=== PATIENT | male | born 1960 | race Caucasian/White ===

== ENCOUNTER → 2017-06-20 | Outpatient (CLI) | payer OTHER ==
[2017-06-20 12:52] LABS: BLOOD UREA NITROGEN 23 mg/dl (7-18); CALCIUM 8.9 mg/dl (8.5-10.1); CARBON DIOXIDE 26 mmol/L (21-32); CHLORIDE 104 mmol/L (98-107); CREATININE 0.98 mg/dl (0.60-1.40); GLUCOSE 101 mg/dl (70-99); POTASSIUM 3.7 mmol/L (3.5-5.1); SODIUM 136 mmol/L (136-145)
[2017-06-20 12:55] LABS: CHOLESTEROL 244 mg/dl (0-200); CHOLESTEROL/HDL RATIO 6.6; HDL CHOLESTEROL 37 mg/dl; TRIGLYCERIDES 256 mg/dl (0-150); VERY LOW DENSITY LIPOPROT CALC 51 mg/dl
[2017-06-20 13:06] LABS: ESTIMATED AVERAGE GLUCOSE 131 mg/dl; HA1C FLAG Normal (Normal)
== END | disposition home or self-care (01) ==
LOC: C.LABSPEC 12:11
PROVIDERS: ATTEND Internal Medicine
DX: I10 Essential (primary) hypertension (principal); R73.9 Hyperglycemia, unspecified; E78.5 Hyperlipidemia, unspecified